=== PATIENT | male | born 1980 | race Caucasian/White ===

== ENCOUNTER 2016-07-05 16:18 | Observation (INO) | payer BC ==
--- NOTE | ~2016-07-05 | HP ---
History And Physical [place] [id number] [facility] [place]. [address] NAME: GIANNI CABA : [birth year] STATUS : ADM Shanice PAT#: [id number] AGE: 36 ADM/REG DATE : 07/05/16 MR#: [id number] REPORT SERV DATE: 07/06/16 DICTATED BY: SHEA TENORIO DATE: 07/06/16 REPORT STATUS : Draft TRANSCRIBED BY: MODL DATE: 07/06/16 DATE OF ADMISSION: 07/05/2016 CHIEF COMPLAINT: Palpitations. HISTORY OF PRESENT ILLNESS: This is a very pleasant 36-year-old male with history of paroxysmal atrial fibrillation, last documented by Holter monitor in 2011, who states a three-day history of palpitations. He states he was at his daughter's swim practice, leaned over the pool edge to speak with her, when he felt his heart suddenly started racing. It was accompanied with some mild dizziness and over the ensuing days, some mild shortness of breath. He took off work the next day and tried to hydrate with Gatorade and water which usually subsides his symptoms, but then at lunch yesterday, the shortness of breath seemed to worsen, so he came to the emergency department for further evaluation. He was found to be in atrial fibrillation at a rate of 120s and was started on IV Cardizem as well as p.o. Eliquis. His heart rate is currently in the 70s on a diltiazem drip at 2.5 mg/hour, and he states still some mild "fluttering." He denies any chest pain surrounding the events over the last couple of days. He denies recent fever, cough, or chills. He did see a women's studies lecturer at the [facility] several years ago and reports a normal echocardiogram at that time. He has actually not had any problems with sustained palpitations for many years. He does admit to a lot of caffeine use up to 30 to 34 ounces per day. 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 He denies personal history for MO, CVA, PE, or DVT. He denies any history of vascular disease or diabetes or heart failure. He denies orthopnea or PND. He denies snoring or unrestful sleeping. Denies recent fever, cough, or chills. MEDICAL HISTORY: 1. Paroxysmal atrial fibrillation. 2. Allergic rhinitis, uses Afrin chronically with rebound nasal congestion. 3. ALL as a child, in remission. One of the chemotherapeutic agent was vincristine. SURGICAL HISTORY: 1. Port-A-Cath with removal. 2. Tonsillectomy. 3. [place] teeth extraction. HOME MEDICATIONS: Afrin nasal spray, three sprays four times a day p.r.n. ALLERGIES: ALLERGY TO PENICILLIN WITH AN UNKNOWN CHILDHOOD REACTION. SOCIAL HISTORY: The patient is , at bedside. They have three children, ages 7, 5, and 9 months. 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 He does use tobacco and E-cigarettes, is down to 3 mg per day. Drinks perhaps one alcoholic beverage per week. Denies illicit drug use. FAMILY HISTORY: Father with a reported history of paroxysmal atrial fibrillation and History And Physical [address] [place]. [address] NAME: GIANNI CABA : 82 STATUS : ADM Shanice PAT#: [id number] AGE: 36 ADM/REG DATE : 07/05/16 MR#: [id number] REPORT SERV DATE: 07/06/16 DICTATED BY: SHEA TENORIO DATE: 07/06/16 REPORT STATUS : Draft TRANSCRIBED BY: AAYUSH DATE: 07/06/16 hypertension. Paternal grandfather of an MO at age 54. Maternal grandmother with history of arrhythmia. REVIEW OF SYSTEMS: Negative except as indicated above. PHYSICAL EXAMINATION: VITAL SIGNS: Blood pressure 106/58, heart rate 80s, temperature 98.0, pulse oximetry 100% room air. BMI 28.4. GENERAL: Well developed, well nourished, in no acute distress. HEENT: Anicteric. Normal EOM. Head normocephalic. PERRLA, no xanthelasma. NECK: Supple. No JVD. Carotids normal without bruits. LUNGS: Clear to auscultation bilaterally anterior and posterior. Respirations even and unlabored. CARDIAC: S1, S2. Irregularly irregular rate and rhythm. No murmurs, rubs, or gallops appreciated. ABDOMEN: Normal bowel sounds. Soft and nontender to palpation. No masses or organomegaly. EXTREMITIES: No peripheral edema. DP/PT and radial pulses palpable bilaterally. No clubbing or cyanosis. SKIN: Warm and dry. Normal turgor. No pallor or cyanosis. MUSCULOSKELETAL: Moving all extremities x4. Normal muscle strength. NEURO/PSYCH: Alert and oriented with appropriate affect. LABORATORY DATA: White blood count 7.5, hemoglobin 18.0, hematocrit 49.9. Sodium 142, potassium 4.3, BUN 13, creatinine 1.1. Troponin less than 0.02 x2. TSH 1.9. T4 1.0. Liver enzymes normal. Chest x-ray was normal. EKGs interpreted by myself indicates first EKG with atrial fibrillation, heart rate 117 beats per minute, questionable inferior Q-waves. Second and third EKGs with atrial fibrillation in the rate of 60s to 70s. ASSESSMENT AND PLAN: Paroxysmal atrial fibrillation in a 36-year-old male with no specific etiology noted. The patient does not appear to have any symptoms of sleep apnea. He does not drink lot of alcohol. TSH has been normal. No chest pain or significant shortness of breath. His heart rate has largely been controlled with IV Cardizem. Since he has not yet converted, we will plan to set him up for a transesophageal echocardiogram and cardioversion later this afternoon. We have begun anticoagulation with Eliquis. I have instructed the patient and his that this will be continued for approximately four to six weeks post- cardioversion. We will provide a 30-day sample free for the patient and arrange followup with Dr. Case, who has seen the patient today within one months' time. Dr. Case has also added Cardizem 30 mg b.i.d. as AV-ishmael agents. We will plan to check an echocardiogram as an outpatient with copy sent to Dr. Case for followup. I have also instructed the patient to decrease caffeine intake and to wean Afrin as he has been taking this chronically. The patient is aware of how to wean himself off the Afrin as he has seen an ENT in the past regarding this. The patient will be discharged home later today provided he is successfully cardioverted. History And Physical [address] [address] NAME: GIANNI CABA : 82 STATUS : ADM Shanice PAT#: [id number] AGE: 36 ADM/REG DATE : 07/05/16 MR#: [id number] REPORT SERV DATE: 07/06/16 DICTATED BY: SHEA TENORIO DATE: 07/06/16 REPORT STATUS : Draft TRANSCRIBED BY: MODL DATE: 07/06/16 DBT/AAYUSH Shea Tenorio NP / [id number] CC: Abimbola Amador, MSN, EDUCATIONAL ADMINISTRATION TEACHER-BC Omar Srinivasan M.D.
--- NOTE | ~2016-07-05 | OP ---
Record Of Operation [facility] [address] [place]. [address] NAME: GIANNI CABA : 82 STATUS : DIS Shanice PAT#: [id number] AGE: 36 ADM/REG DATE : 07/05/16 MR#: [id number] REPORT SERV DATE: 07/06/16 DICTATED BY: ROMAN TROY DATE: 07/06/16 REPORT STATUS : Draft TRANSCRIBED BY: MODL DATE: 07/06/16 DATE OF PROCEDURE: 07/06/2016 REASON FOR PROCEDURE: Atrial fibrillation with RVR. PROCEDURE TYPE: Elective transesophageal echocardiogram and synchronized cardioversion. DESCRIPTION OF PROCEDURE: After obtaining informed consent, Anesthesia administered IV lidocaine (100 mg total) and IV propofol (700 mg total) to achieve and maintain adequate conscious sedation throughout the procedure. Upon successful sedation, the transesophageal probe was readily inserted without complication. [place]ient 2D echocardiographic windows were obtained including color and spectral Doppler assessment as detailed below. Upon clearance of the left atrial appendage and completion of the transesophageal echocardiogram, the transesophageal probe was withdrawn without any complications. The patient was subsequently shocked with 200 joules, synchronized x1, with successful conversion to sinus rhythm at 90 beats per minute. There were no complications from the procedure. The patient was recovered by anesthesia and family was updated by me personally. ECHOCARDIOGRAPHIC FINDINGS: 1. CHAMBERS:. a. Left ventricle: The left ventricle is normal in size with normal wall thickness, mildly decreased left ventricular systolic function with an estimated ejection fraction of approximately 45%to 50%. Variable RR interval, however, limits accuracy of this estimation. b. Right ventricle: The right ventricle is normal in size with normal systolic function. c. Left atrium: The left atrium is normal in size. d. Right atrium: The right atrium is normal in size. e. Left atrial appendage: There was no thrombus is present in the left atrial appendage at the time of the LEOBARDO. The left atrial appendage was interrogated in multiple planes, without any evidence of thrombus. Spectral Doppler assessment of the left atrial appendage demonstrated normal velocities with a peak velocity of 80 cm/second. 2. VALVES:. a. Mitral valve: The mitral valve is mildly thickened with preserved leaflet motion. There was no mitral stenosis; however, on color and spectral Doppler assessment, there was mild mitral regurgitation with multiple small centrally directed jets. b. Tricuspid valve: The tricuspid valve is normal with preserved leaflet motion. No tricuspid stenosis is seen. Trace tricuspid regurgitation is seen. The aortic valve is normal and trileaflet. No aortic stenosis or regurgitation is seen with color Doppler assessment. c. Pulmonic valve: The pulmonic valve was adequately visualized and appeared to be morphologically normal with good leaflet motion. No pulmonic stenosis or regurgitation is seen on color Doppler and 2D echo assessment. 3. OTHER STRUCTURES:. Record Of Operation [place] [address] [place]. [address] NAME: GIANNI CABA : 82 STATUS : DIS Shanice PAT#: [id number] AGE: 36 ADM/REG DATE : 07/05/16 MR#: [id number] REPORT SERV DATE: 07/06/16 DICTATED BY: ROMAN TROY DATE: 07/06/16 REPORT STATUS : Draft TRANSCRIBED BY: AAYUSH DATE: 07/06/16 a. Aorta: The aorta is normal without atherosclerotic plaquing seen in the descending aorta or aortic arch. b. Pericardium: The pericardium appeared normal without thickening. "no pericardial effusion is seen". c. Interatrial septum. The interatrial septum is normal. There is no evidence of a PFO or ASD with color Doppler assessment. d. Pulmonary veins: The right and left superior pulmonary veins were well visualized and appeared to be normal. There was normal color Doppler flow in both pulmonary veins without evidence of pulmonary vein systolic flow reversal on Doppler assessment. The peak velocity in both upper pulmonary veins was approximately 40 cm/second. e. Vena cavae: The proximal IVC and SVC are morphologically normal and demonstrate normal inflow into the right atrium on included views. VR/MODL Roman Troy MD / [id number] CC: Abimbola Amador, MSN, STEEL DIE PRESS SET UP OPERATOR-BC Omar Srinivasan M.D.
[2016-07-05 18:06] LABS: BASOPHILS 0.3 %; BASOPHILS ABSOLUTE 0.02 10/3/uL (0.0-0.16); HEMATOCRIT 49.9 % (40.0-51.0); IMMATURE GRANULOCYTES 0.1 %; IMMATURE GRANULOCYTES ABSOLUTE 0.01 10/3/uL (0.0-0.11); LYMPHOCYTES 33.4 %; LYMPHOCYTES ABSOLUTE 2.49 10/3/uL (0.67-4.30); MEAN CORPUS HGB CONC 36.1 g/dL (32.0-36.0); MEAN CORPUSCULAR HEMOGLOB 31.1 pg (26.0-34.0); MEAN CORPUSCULAR VOLUME 86.2 fL (80-100); MEAN PLATELET VOLUME 10.5 fL (9.2-13.0); MONOCYTES 6.2 %; MONOCYTES ABSOLUTE 0.46 10/3/uL (0.21-1.20); NEUTROPHILS ABSOLUTE 4.18 10/3/uL (2.02-8.40); PLATELET COUNT 235 10/3/uL (150-400); RBC DISTRIBUTION WIDTH 12.7 % (12.0-16.0); RED CELL COUNT 5.79 10/6/uL (4.7-6.1); WHITE BLOOD CELLS 7.5 10/3/uL (4.5-10.5)
[2016-07-05 18:07] LABS: MANUAL DIFF NO %
[2016-07-05 18:16] LABS: PARTIAL THROMBO TIME 26.5 SEC (22.5-37.2); PROTIME (NOT ORD) 13.5 SEC (12.0-14.5)
[2016-07-05 18:22] LABS: BUN (BLOOD UREA NITROGEN) 13 MG/DL (6-23); CALCIUM, SERUM 8.5 MG/DL (8.5-10.4); CHEST PAIN PROFILE TAT 0 Hrs 22 Mins; CHLORIDE, SERUM 106 MMOL/L (96-112); CO2 (CARBON DIOXIDE) 33 MMOL/L (24-34); GFR AFRICAN AMERICAN 100 ML/MIN (>=60); GFR NON AFRICAN AMERICAN 87 ML/MIN (>=60); GLUCOSE, SERUM 96 MG/DL (60-99); SODIUM, SERUM 142 MMOL/L (135-148); TROPONIN I <0.02 NG/ML (<0.05)
[2016-07-05 18:24] LABS: POTASSIUM, SERUM 4.3 MMOL/L (3.5-5.3)
[2016-07-05] MEDS ORDERED: AFRIN15 NAS (19:14)
[2016-07-05 22:37] LABS: ALBUMIN 4.1 G/DL (3.5-5.0); SGPT(ALT) 39 U/L (5-65); TOTAL BILIRUBIN 0.5 MG/DL (0-1.2); TOTAL PROTEIN 7.5 G/DL (6.0-8.5)
[2016-07-05 22:38] LABS: ALKALINE PHOSPHATASE 106 U/L (45-117); DIRECT BILIRUBIN < 0.1 MG/DL (0.0-0.4); INDIRECT BILIRUBIN(NOT ORDER) 0.4 MG/DL (0.1-0.9); SGOT(AST) 20 U/L (5-40)
[2016-07-06 02:28] LABS: FREE T4 1.05 NG/DL (0.76-1.46)
[2016-07-06] MEDS ORDERED: CARD30 PO (15:54)
[2016-07-06] MEDS ORDERED: ELIQUIS 5 MG TAB5 MG PO (15:55)
== END 2016-07-06 16:19 | disposition home or self-care (01) ==
LOC: ER 16:18 → CDU1 20:31 → CDU2 21:21
PROVIDERS: Hospitalist
DX: I48.0 Paroxysmal atrial fibrillation (principal); Z88.1 Allergy status to other antibiotic agents; Z90.89 Acquired absence of other organs; C95.90 Leukemia, unspecified not having achieved remission
CPT/HCPCS: 71020; 80048; 80076; 83735; 83880; 84439; 84443; 84484; 85025; 85610; 85730; 93005; 93312; 93320; 93325; 96374; 96376; 99291; A9270-GY; G0378